=== PATIENT | male | born 1975 | race Caucasian/White ===

== ENCOUNTER 2018-08-17 18:25 | Emergency (ER) | payer SELFPAY ==
[2018-08-17] MEDS ORDERED: Ketorolac 60 MG/2 ML SDV IM ONE (19:39)
--- NOTE | 2018-08-17 19:43 | EDM.PDOC ---
ED HPI GENERAL MEDICAL PROBLEM - General Chief Complaint: Back Pain or Injury Stated Complaint: FELL ON ICE IN PAIN Time Seen by Provider: 08/17/18 19:30 Source of Information: Reports: Patient History Limitations: Reports: No Limitations - History of Present Illness INITIAL COMMENTS - FREE TEXT/NARRATIVE: 42-year-old male slipped on the ice 2 hours ago, falling awkwardly and hitting his right forehead on the ground. He fell very hard, and within 30 minutes he started developing spasms and pain in his neck and low back. It is now the point where he can "hardly move". Is also getting some sharp pains down his right leg. No loss of consciousness, no headache. No nausea or vomiting or visual complaints. He does have a remote history of back problems but nothing recent. He is on no medications. Onset: Sudden Duration: Hour(s): (2 hours ago) Location: Reports: Neck, Back (lower back) Associated Symptoms: Reports: Other (Paresthesias down the right leg). Denies: Confusion, Chest Pain, Cough, Nausea/Vomiting, Weakness Neck Pain Score (Numeric/FACES): 7 Lower back Pain Score (Numeric/FACES): 7 - Related Data Allergies Allergy/AdvReac Type Severity Reaction Status Date / Time No Known Allergies Allergy Verified 08/17/18 19:28 Home Meds: Home Meds NK [No Known Home Meds] 08/17/18 [History] Past Medical History - Infectious Disease History Infectious Disease History: Reports: Chicken Pox Social & Family History - Tobacco Use Smoking Status *Q: Current Every Day Smoker Years of Tobacco use: 15 Packs/Tins Daily: 1 Second Hand Smoke Exposure: Yes - Caffeine Use Caffeine Use: Reports: Coffee, Soda - Recreational Drug Use Recreational Drug Use: No ED ROS GENERAL - Review of Systems Review Of Systems: See Below Constitutional: Denies: Fever, Chills HEENT: Reports: No Symptoms Respiratory: Denies: Shortness of Breath Cardiovascular: Denies: Chest Pain GI/Abdominal: Denies: Nausea, Vomiting Musculoskeletal: Reports: Neck Pain, Back Pain Skin: Reports: Other (Slight abrasion on his right forehead) Neurological: Reports: Paresthesia (Right leg) ED EXAM, UPPER BACK/NECK PAIN - Physical Exam Exam: See Below Exam Limited By: No Limitations General Appearance: Alert, Mild Distress (Looks fairly uncomfortable) Eye Exam: Bilateral Eye: Normal Inspection Head Exam: Other (Superficial abrasion on the high right forehead, no ecchymosis or hematoma) Neck Exam: Limited Range of Motion (Very painful to any range of motion, some percussion tenderness over the lower cervical spine) Back Exam: Other (He does have percussion tenderness over the lumbar spine, also paraspinal tenderness to palpation) Extremities: Other (Increase pain with extension of right leg to the lower back) Neurologic: No Motor/Sensory Deficits, Oriented x 3 Psychiatric: Normal Affect, Normal Mood Course - Vital Signs Last Recorded V/S: Last Vital Signs Temp 96.5 F 08/17/18 19:23 Pulse 90 08/17/18 19:23 Resp 14 08/17/18 19:23 BP 120/75 08/17/18 19:23 Pulse Ox 99 08/17/18 19:23 - Orders/Labs/Meds Meds: Medications Discontinued Medications Generic Name Dose Route Start Last Admin Trade Name Freq PRN Reason Stop Dose Admin Hydromorphone HCl 1 mg 08/17/18 20:32 08/17/18 20:39 Dilaudid IM 08/17/18 20:33 1 mg ONETIME ONE Administration Ketorolac Tromethamine 60 mg 08/17/18 19:39 08/17/18 19:48 Toradol IM 08/17/18 19:40 60 mg ONETIME ONE Administration Oxycodone HCl 10 mg 08/17/18 21:18 08/17/18 21:32 Oxycodone PO 08/17/18 21:19 10 mg ONETIME ONE Administration - Re-Assessments/Exams Free Text/Narrative Re-Assessment/Exam: 08/17/18 19:43 Patient was given 60 mg of IM Toradol, this will be followed by C-spine x-rays and lumbar spine x-rays. 08/17/18 21:20 Toradol wasn't very effective, the C-spine and lumbar spine x-rays were normal. He was then given 1 mg of Dilaudid IM which was fairly beneficial. He was given one 10 mg oxycodone dose, and a prescription for 15 additional 10 mg doses and a copy of his x-rays. He'll recheck in the next 2-3 days if not improving, or return sooner if he develops incontinence or worsening neurologic symptoms Departure - Departure Time of Disposition: 21:54 Disposition: Home, Self-Care 01 Condition: Fair Clinical Impression: Low back pain Qualifiers: Chronicity: acute Back pain laterality: right Sciatica presence: without sciatica Qualified Code(s): M54.5 - Low back pain Strain of neck Qualifiers: Encounter type: initial encounter Qualified Code(s): S16.1XXA - Strain of muscle, fascia and tendon at neck level, initial encounter - Discharge Information Instructions: Back Pain, Adult, [id number] Referrals: PCP,None [Primary Care Provider] - Forms: ED Department Discharge Care Plan Goals: Consider a regular dose of ibuprofen or naproxen over the next several days, adding the oxycodone as needed for significant pain. Return to an emergency room if you develop incontinence or worsening numbness or weakness in your leg. Consider rechecking in 3-5 days if not improving satisfactorily, take your x- ray copies with to any rechecks.
[2018-08-17] MEDS ORDERED: HYDROmorphone 1 MG/ML Syringe IM ONE (20:32)
--- NOTE | 2018-08-17 20:40 | CRLCR ---
INDICATION: Pain after fall TECHNIQUE: Cervical spine 3 view. COMPARISON: None FINDINGS: Bones: Alignment is normal. No fractures or significant bone lesions. Joints: Disc space narrowing with small osteophytes C5-6. Soft tissues: Unremarkable. IMPRESSION: No evidence of fracture. Mild degenerative disc disease C5-6. Dictated by Donny Curtis MD @ Aug 17 2018 8:36PM Signed by Dr. Donny Curtis @ Aug 17 2018 8:38PM
--- NOTE | 2018-08-17 20:42 | CRLCR ---
INDICATION: Pain after fall. TECHNIQUE: Lumbar spine 5 view COMPARISON: None FINDINGS: Bones: Alignment is normal. No fractures or significant bone lesions. Joints: Disc spaces and facets are unremarkable. Soft tissues: Unremarkable. IMPRESSION: Unremarkable lumbar spine. Dictated by Donny Curtis MD @ Aug 17 2018 8:38PM Signed by Dr. Donny Curtis @ Aug 17 2018 8:40PM
[2018-08-17] MEDS ORDERED: oxyCODONE 5 MG Tab PO ONE (21:18)
== END 2018-08-17 21:42 | disposition home or self-care (01) ==
LOC: JP.ED 18:25
DX: S16.1XXA Strain of muscle, fascia and tendon at neck level, initial encounter (principal); S00.81XA Abrasion of other part of head, initial encounter; M54.5 Low back pain; F17.210 Nicotine dependence, cigarettes, uncomplicated; W00.0XXA Fall on same level due to ice and snow, initial encounter
CPT/HCPCS: 72040; 72110; 96372; 99283; A9270; J1170; J1885